=== PATIENT | female | born 1950 ===

== ENCOUNTER 2022-04-06 07:54 | Day surgery (SDC) | payer OTHER ==
[~2022-04-06] VITALS: Ht 157.5 cm; Wt 64.9 kg
[~2022-04-06 07:54] MED LIST: CRESTOR20 MG PO; HORIZANT300 MG PO; LEVOTHYROXINE25 MCG PO; MAXIMUM D3325 MCG PO; MICARDIS80 MG PO; OMEGA PO; [UNRECOGNIZED DRUG - OTHER]
[2022-04-06] MEDS ORDERED: PERCOCET 5-3251 EACH PO (15:07)
== END 2022-04-06 19:10 | disposition home or self-care (01) ==
LOC: CIR.AMB 07:54
PROVIDERS: ATTEND Surgery
DX: K64.8 Other hemorrhoids (principal); K62.89 Other specified diseases of anus and rectum; Z20.822 Contact with and (suspected) exposure to COVID-19; I10 Essential (primary) hypertension; E78.5 Hyperlipidemia, unspecified; E03.9 Hypothyroidism, unspecified; N28.9 Disorder of kidney and ureter, unspecified

== ENCOUNTER 2022-09-22 05:58 | Day surgery (SDC) | payer OTHER ==
[~2022-09-22] VITALS: Ht 154.9 cm; Wt 62.1 kg
[~2022-09-22 05:58] MED LIST changes: +PERCOCET 5-3251 EACH PO
[2022-09-22] MEDS ORDERED: PERCOCET 5-3251 EACH PO (10:36)
== END 2022-09-22 18:00 | disposition home or self-care (01) ==
LOC: CIR.AMB 05:58
PROVIDERS: ATTEND Surgery
DX: K60.1 Chronic anal fissure (principal); K62.89 Other specified diseases of anus and rectum; K62.4 Stenosis of anus and rectum; I10 Essential (primary) hypertension; Z86.16 Personal history of COVID-19; E03.9 Hypothyroidism, unspecified; D64.9 Anemia, unspecified; Z20.822 Contact with and (suspected) exposure to COVID-19